=== PATIENT | male | born 1965 | race Caucasian/White ===

== ENCOUNTER 2017-12-03 03:02 | Emergency (ER) | payer SELFPAY ==
[~2017-12-03] VITALS: Ht 185.4 cm; Wt 98.0 kg
[2017-12-03 03:35] VITALS: BP 149/92
== END 2017-12-03 04:18 | disposition home or self-care (01) ==
LOC: EMS 03:04
DX: S92.355A Nondisplaced fracture of fifth metatarsal bone, left foot, initial encounter for closed fracture (principal); F17.210 Nicotine dependence, cigarettes, uncomplicated; Z88.1 Allergy status to other antibiotic agents; Z88.8 Allergy status to other drugs, medicaments and biological substances; W18.39XA Other fall on same level, initial encounter; Y93.89 Activity, other specified; Y92.89 Other specified places as the place of occurrence of the external cause; Y99.8 Other external cause status
CPT/HCPCS: 99284